=== PATIENT | male | born 1940 | race African-American/Black ===

== ENCOUNTER 2022-04-11 16:09 | Inpatient (IN) | payer OTHER ==
[~2022-04-11] VITALS: Ht 177.8 cm; Wt 87.5 kg
[2022-04-11] MEDS ORDERED: DILTIAZEM HCL 5MG/ML 5ML VIAL IV ONE ×2 (17:15→19:15)
[2022-04-11 17:21] LABS: BASOPHILS % 0.3 % (0.0-2.0); EOSINOPHILS % 0.2 % (0.0-5.0); HEMATOCRIT. 40.8 % (42.0-52.0); HEMOGLOBIN. 13.7 g/dL (14.0-18.0); LYMPHOCYTES % 12.2 % (20.0-50.0); MEAN CORPUSCULAR HEMOGLOBIN 32.6 pg (28.0-32.0); MEAN CORPUSCULAR VOLUME 97.1 fL (80.0-94.0); MEAN PLATELET VOLUME 8.6 fl (7.4-10.4); MONOCYTES % 8.5 % (2.0-8.0); NEUTROPHILS % 78.8 % (40.0-76.0); PLATELET 184 x1000/uL (130-400); RED CELL DISTRIBUTION WIDTH 13.8 % (11.6-14.6)
[2022-04-11 17:26] LABS: CHLORIDE 103 mEq/L (98-107)
[2022-04-11 17:28] LABS: INR 1.4; PROTHROMBIN TIME 14.6 sec (9.6-11.0)
[2022-04-11] MEDS ORDERED: DILTIAZEM HCL 60MG TABLET PO ONE (18:15)
[2022-04-11 22:44] LABS: CLARITY URINE CLEAR (CLEAR); COLOR URINE DARK YELLOW (YELLOW); KETONES URINE TRACE (NEGATIVE); LEUKOCYTE ESTERASE URINE NEGATIVE (NEGATIVE); NITRITE URINE NEGATIVE (NEGATIVE); OCCULT BLOOD URINE NEGATIVE (NEGATIVE); PH URINE 5.5 (4.5-8.0); PROTEIN URINE 3+ (NEGATIVE); UROBILINOGEN URINE 0.2 E.U./dL (0.2-1.0)
[2022-04-12] MEDS ORDERED: HYDROCODONE/ACETAMINOPHEN 5/325MG TABLET PO PRN ×2 (01:00→08:30)
[2022-04-12] MEDS ORDERED: ACETAMINOPHEN 650MG SUPP PR PRN ×2 (01:00)
[2022-04-12] MEDS ORDERED: IPRATROPIUM/ALBUTEROL 0.5-3(2.5)MG/3ML NEB HHN PRN (01:00)
[2022-04-12] MEDS ORDERED: DOCUSATE SODIUM 100MG CAPSULE PO PRN (01:00)
[2022-04-12] MEDS ORDERED: MAGNESIUM/ALUMINUM HYDROXIDE/SIMETHICONE 30ML UDC PO PRN ×2 (01:00→08:30)
[2022-04-12] MEDS ORDERED: ONDANSETRON HCL 4MG/2ML INJ IV PRN (01:00)
[2022-04-12] MEDS ORDERED: GUAIFENESIN 200MG/10ML SUGAR FREE UDC PO PRN (01:00)
[2022-04-12] MEDS ORDERED: ACETAMINOPHEN 325MG TABLET PO PRN ×3 (01:00→08:30)
[2022-04-12] MEDS ORDERED: CLONIDINE 0.1MG TABLET PO PRN (01:00)
[2022-04-12] MEDS ORDERED: NALOXONE HCL 0.4MG/ML VIAL IV PRN (01:30)
[2022-04-12] MEDS ORDERED: [UNRECOGNIZED DRUG - OTHER] (03:08)
[2022-04-12 03:37] VITALS: BP 105/76
[2022-04-12 08:00] VITALS: BP 127/96
[2022-04-12] MEDS: SODIUM CHLORIDE 0.9% 1,000 ML IV SCH (08:30)
[2022-04-12] MEDS ORDERED: DEXTROSE 50% WATER 50ML SYRINGE IV PRN ×2 (08:30)
[2022-04-12] MEDS: OMEPRAZOLE 20MG CAPSULE EXTENDED RELEASE PO SCH ×2 (08:41→10:42)
[2022-04-12] MEDS: ENOXAPARIN 40MG/0.4ML SYR SUBCUT SCH ×2 (09:00→10:41)
[2022-04-12] MEDS: DILTIAZEM HCL 120MG CAPSULE ER 24HR PO SCH ×2 (09:00→10:42)
[2022-04-12 12:00] VITALS: BP 141/106
[2022-04-12] MEDS: DILTIAZEM HCL 60MG TABLET PO SCH ×2 (12:00→15:08)
[2022-04-12] MEDS: BLOOD SUGAR DIAGNOSTIC STRIP TEST SCH ×4 (12:20→21:13)
[2022-04-12] MEDS: INSULIN LISPRO 100 UNITS/ML SUBCUT SCH ×3 (12:50→21:00)
[2022-04-12 16:00] VITALS: BP 138/98
[2022-04-12] MEDS ORDERED: DIGOXIN 500MCG/2ML AMP IV ONE (16:15)
[2022-04-12] MEDS ORDERED: METOPROLOL TARTRATE 5MG/5ML VIAL IV NR (16:30)
[2022-04-12] MEDS ORDERED: APIXABAN 2.5 MG TABLET PO SCH (17:00)
[2022-04-12] MEDS ORDERED: METOPROLOL SUCCINATE 50MG ER TABLET PO SCH (17:00)
[2022-04-12] MEDS: APIXABAN 5 MG TABLET PO SCH (17:16)
[2022-04-12] MEDS: METOPROLOL TARTRATE 100MG TABLET PO SCH (17:45)
[2022-04-12 20:00] VITALS: BP 114/80
[2022-04-12 21:25] LABS: *AMPHETAMINES SCREEN URINE NEGATIVE (NEGATIVE); *BARBITURATES SCREEN URINE NEGATIVE (NEGATIVE); *BENZODIAZEPINES SCREEN URINE NEGATIVE (NEGATIVE); *COCAINE SCREEN URINE NEGATIVE (NEGATIVE); CANNABINOID URINE SCREEN NEGATIVE (NEGATIVE); METHADONE URINE SCREEN NEGATIVE (NEGATIVE); OPIATES URINE SCREEN NEGATIVE (NEGATIVE); PHENCYCLIDINE URINE SCREEN NEGATIVE (NEGATIVE)
[2022-04-13] VITALS: BP 116/89
[2022-04-13] MEDS: DILTIAZEM HCL 60MG TABLET PO SCH ×2 (00:09→06:14)
[2022-04-13 00:45] LABS: BASOPHILS % 0.4 % (0.0-2.0); EOSINOPHILS % 0.5 % (0.0-5.0); HEMATOCRIT. 39.5 % (42.0-52.0); HEMOGLOBIN. 13.2 g/dL (14.0-18.0); MEAN CORPUSCULAR HEMOGLOBIN 32.4 pg (28.0-32.0); MEAN CORPUSCULAR VOLUME 97.1 fL (80.0-94.0); MEAN PLATELET VOLUME 8.4 fl (7.4-10.4); MONOCYTES % 10.6 % (2.0-8.0); NEUTROPHILS % 70.5 % (40.0-76.0); PLATELET 185 x1000/uL (130-400); RED BLOOD CELL COUNT 4.07 mill/uL (4.7-6.1); RED CELL DISTRIBUTION WIDTH 14.1 % (11.6-14.6)
[2022-04-13 00:59] LABS: CHLORIDE 107 mEq/L (98-107)
[2022-04-13 01:08] LABS: CREATINE KINASE 157 IU/L (39-308); LDL CHOLESTEROL 54 mg/dL (5-100)
[2022-04-13] MEDS: SODIUM CHLORIDE 0.9% 1,000 ML IV SCH ×2 (01:12→21:25)
[2022-04-13 01:34] LABS: HDL CHOLESTEROL 37 mg/dL (40-59)
[2022-04-13 04:00] VITALS: BP 134/100
[2022-04-13] MEDS: OMEPRAZOLE 20MG CAPSULE EXTENDED RELEASE PO SCH (06:14)
[2022-04-13] MEDS: BLOOD SUGAR DIAGNOSTIC STRIP TEST SCH ×4 (06:37→21:00)
[2022-04-13] MEDS: INSULIN LISPRO 100 UNITS/ML SUBCUT SCH ×4 (06:37→21:00)
[2022-04-13 08:00] VITALS: BP 142/110
[2022-04-13 08:11] LABS: BASOPHILS % 0.3 % (0.0-2.0); EOSINOPHILS % 0.5 % (0.0-5.0); HEMOGLOBIN. 12.9 g/dL (14.0-18.0); LYMPHOCYTES % 20.6 % (20.0-50.0); MEAN CORPUSCULAR HEMOGLOBIN 32.6 pg (28.0-32.0); MEAN CORPUSCULAR VOLUME 98.5 fL (80.0-94.0); MEAN PLATELET VOLUME 8.6 fl (7.4-10.4); MONOCYTES % 11.5 % (2.0-8.0); NEUTROPHILS % 67.1 % (40.0-76.0); PLATELET 180 x1000/uL (130-400); RED BLOOD CELL COUNT 3.96 mill/uL (4.7-6.1); RED CELL DISTRIBUTION WIDTH 14.1 % (11.6-14.6)
[2022-04-13 08:36] LABS: PHOSPHORUS 3.3 mg/dL (2.5-4.9); T4 FREE 1.25 ng/dL (0.76-1.46)
[2022-04-13] MEDS: APIXABAN 5 MG TABLET PO SCH ×2 (09:22→17:05)
[2022-04-13] MEDS: METOPROLOL TARTRATE 100MG TABLET PO SCH (09:22)
[2022-04-13 12:00] VITALS: BP 101/75
[2022-04-13] MEDS: DILTIAZEM HCL 90MG TABLET PO SCH ×2 (12:00→17:05)
[2022-04-13 16:00] VITALS: BP 116/93
[2022-04-13] MEDS ORDERED: [UNRECOGNIZED DRUG - OTHER] PO (18:16)
[2022-04-13 20:00] VITALS: BP 124/88
[2022-04-13] MEDS: CARVEDILOL 12.5MG TABLET PO SCH (21:01)
[2022-04-14] VITALS (7 sets, daily range): BP systolic 102–127; BP diastolic 77–97
[2022-04-14] MEDS: DILTIAZEM HCL 90MG TABLET PO SCH ×4 (05:18→18:20)
[2022-04-14 06:15] LABS: BASOPHILS % 0.5 % (0.0-2.0); EOSINOPHILS % 0.6 % (0.0-5.0); HEMATOCRIT. 37.6 % (42.0-52.0); HEMOGLOBIN. 12.6 g/dL (14.0-18.0); LYMPHOCYTES % 18.7 % (20.0-50.0); MEAN CORPUSCULAR HEMOGLOBIN 32.9 pg (28.0-32.0); MEAN CORPUSCULAR VOLUME 98.3 fL (80.0-94.0); MEAN PLATELET VOLUME 8.7 fl (7.4-10.4); MONOCYTES % 9.7 % (2.0-8.0); NEUTROPHILS % 70.5 % (40.0-76.0); PLATELET 183 x1000/uL (130-400); RED BLOOD CELL COUNT 3.83 mill/uL (4.7-6.1); RED CELL DISTRIBUTION WIDTH 13.9 % (11.6-14.6)
[2022-04-14] MEDS: FAMOTIDINE 20MG TABLET PO SCH (06:31)
[2022-04-14] MEDS: BLOOD SUGAR DIAGNOSTIC STRIP TEST SCH ×4 (06:38→20:42)
[2022-04-14] MEDS: INSULIN LISPRO 100 UNITS/ML SUBCUT SCH ×4 (06:39→20:42)
[2022-04-14] MEDS ORDERED: DIGOXIN 125MCG TABLET PO SCH ×2 (09:00→18:00)
[2022-04-14] MEDS: CARVEDILOL 12.5MG TABLET PO SCH ×2 (11:04→20:41)
[2022-04-14] MEDS: APIXABAN 5 MG TABLET PO SCH ×2 (11:05→17:46)
[2022-04-14] MEDS: SODIUM CHLORIDE 0.9% 1,000 ML IV SCH (11:11)
[2022-04-15] VITALS: BP 111/84
[2022-04-15] MEDS: DILTIAZEM HCL 90MG TABLET PO SCH ×3 (00:32→12:00)
[2022-04-15] MEDS: SODIUM CHLORIDE 0.9% 1,000 ML IV SCH (03:52)
[2022-04-15 04:00] VITALS: BP 119/81
[2022-04-15] MEDS: BLOOD SUGAR DIAGNOSTIC STRIP TEST SCH ×2 (06:50→12:37)
[2022-04-15] MEDS: FAMOTIDINE 20MG TABLET PO SCH (06:52)
[2022-04-15 07:00] LABS: CHLORIDE 111 mEq/L (98-107)
[2022-04-15 07:01] LABS: BASOPHILS % 0.5 % (0.0-2.0); EOSINOPHILS % 0.5 % (0.0-5.0); HEMATOCRIT. 40.1 % (42.0-52.0); HEMOGLOBIN. 13.4 g/dL (14.0-18.0); LYMPHOCYTES % 17.9 % (20.0-50.0); MEAN CORPUSCULAR HEMOGLOBIN 32.6 pg (28.0-32.0); MEAN CORPUSCULAR VOLUME 97.5 fL (80.0-94.0); MEAN PLATELET VOLUME 8.9 fl (7.4-10.4); MONOCYTES % 10.3 % (2.0-8.0); NEUTROPHILS % 70.8 % (40.0-76.0); PLATELET 180 x1000/uL (130-400); RED BLOOD CELL COUNT 4.11 mill/uL (4.7-6.1); RED CELL DISTRIBUTION WIDTH 14.1 % (11.6-14.6)
[2022-04-15] MEDS: INSULIN LISPRO 100 UNITS/ML SUBCUT SCH ×2 (07:41→13:10)
[2022-04-15 08:00] VITALS: BP 110/79
[2022-04-15] MEDS: CARVEDILOL 12.5MG TABLET PO SCH (09:07)
[2022-04-15] MEDS: APIXABAN 5 MG TABLET PO SCH (09:07)
[2022-04-15 12:00] VITALS: BP 107/71
[2022-04-15] MEDS ORDERED: DILT180C66 MT (13:58)
[2022-04-15] MEDS ORDERED: DIGO-26 PO (13:58)
[2022-04-15] MEDS ORDERED: APIX5TAB PO (13:58)
[2022-04-15 15:16] VITALS: BP 107/71
== END 2022-04-15 17:02 | disposition home or self-care (01) | DRG 309 ==
LOC: ER 16:09 → MICUSO 19:56 → EDBEDREQ 20:19 → EDBEDREQTM 20:19 → 6WST 04-12 04:21
PROVIDERS: ADMIT Family Medicine Adult Medicine; ATTEND Family Medicine Adult Medicine
DX: I48.91 Unspecified atrial fibrillation (principal); N17.9 Acute kidney failure, unspecified; R74.01 Elevation of levels of liver transaminase levels; N18.9 Chronic kidney disease, unspecified; I51.3 Intracardiac thrombosis, not elsewhere classified; I42.9 Cardiomyopathy, unspecified; I48.92 Unspecified atrial flutter; R73.9 Hyperglycemia, unspecified; Z20.822 Contact with and (suspected) exposure to COVID-19; R94.6 Abnormal results of thyroid function studies; I34.0 Nonrheumatic mitral (valve) insufficiency; Z91.199 Patient's noncompliance with other medical treatment and regimen due to unspecified reason
CPT/HCPCS: 36415; 71045; 76700; 80048; 80053; 80061; 80076; 80305; 81003; 82550; 82962; 83036; 83735; 84100; 84145; 84439; 84443; 84484; 85025; 87426; 93005; 93306; 93880; 93970; 99291; C9803; J1650; J1815; J3490; J7030